=== PATIENT | male | born 1995 | race African-American/Black ===

== ENCOUNTER 2016-11-18 13:08 | Emergency (ER) | payer SELFPAY ==
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
== END 2016-11-18 14:40 | disposition home or self-care (01) ==
LOC: ER 13:08
DX: S63.501A Unspecified sprain of right wrist, initial encounter (principal); S00.83XA Contusion of other part of head, initial encounter; S00.511A Abrasion of lip, initial encounter; S40.812A Abrasion of left upper arm, initial encounter; S40.811A Abrasion of right upper arm, initial encounter; R55 Syncope and collapse; F17.200 Nicotine dependence, unspecified, uncomplicated; Z88.0 Allergy status to penicillin; Z79.899 Other long term (current) drug therapy; Z98.890 Other specified postprocedural states; Y00.XXXA Assault by blunt object, initial encounter